=== PATIENT | male | born 1995 | race African-American/Black ===

== ENCOUNTER 2024-08-30 | Emergency (ER) | payer BC ==
[~2024-08-30] VITALS: Ht 170.2 cm; Wt 52.9 kg
[2024-08-30 00:33] VITALS: O2SAT 99
[2024-08-30] MEDS: VISCOUS LIDOCAINE 2% 15 ML UDC PO STA (01:41)
[2024-08-30 02:25] VITALS: BP 131/89; PULSE 73; RESP 18; TEMP 36.8; O2SAT 99
== END 2024-08-30 02:28 | disposition home or self-care (01) ==
LOC: ER
DX: J02.9 Acute pharyngitis, unspecified (principal); J45.909 Unspecified asthma, uncomplicated
CPT/HCPCS: 99283

== ENCOUNTER 2024-09-27 20:41 | Emergency (ER) | payer BC ==
[~2024-09-27] VITALS: Ht 170.2 cm; Wt 52.0 kg
[2024-09-27 20:43] VITALS: O2SAT 99
[2024-09-27] MEDS: KETOROLAC 15MG/ML VIAL IM ONE (21:44)
[2024-09-27] MEDS ORDERED: LIDO-53 TP (21:47)
[2024-09-27] MEDS ORDERED: NAPR-1176 MT (21:47)
[2024-09-27 22:01] VITALS: BP 124/77; PULSE 70; RESP 20; O2SAT 100
== END 2024-09-27 22:11 | disposition home or self-care (01) ==
LOC: ER 20:43
DX: M25.512 Pain in left shoulder (principal); J45.909 Unspecified asthma, uncomplicated; Z79.1 Long term (current) use of non-steroidal anti-inflammatories (NSAID); Z98.890 Other specified postprocedural states; Z79.899 Other long term (current) drug therapy
CPT/HCPCS: 99284; 71045; 73030; 93005; 96372; J1885; 99283